=== PATIENT | female | born 1960 | race Caucasian/White ===

== ENCOUNTER 2019-10-13 20:34 | Emergency (ER) | payer OTHER ==
[~2019-10-13] VITALS: Ht 172.7 cm; Wt 104.3 kg
[~2019-10-13 20:34] MED LIST: CELEBREX 200 M200 M1 PO; CLONIDINE0.1 PO; CRESTOR20 MG PO; CYCLOBENZAPRINE10 MG PO; GRALISE600 MG PO; HYDROCODON-ACE1 EAC8 PO; LEXAPRO20 MG PO; LIORESAL 10 MG10 MG PO; LIPITOR 20 MG T20 M1 PO; METHADONE HCL 110 M1 PO; METHADONE HCL5 MG PO; MOBIC15 MG PO; RESTORIL15 MG PO; SERTRALINE HCL100 MG PO; TRILEPTAL300 MG PO; TYLENOL EXTRA500 MG PO; ZOCOR40 MG PO; ZOLOFT25 MG PO
[2019-10-13] MEDS ORDERED: ROBAXIN 750 MG750 MG PO (20:45)
[2019-10-13] MEDS ORDERED: PAXIL40 MG PO (20:46)
[2019-10-13] MEDS ORDERED: FLEXERIL PO (21:58)
[2019-10-13] MEDS ORDERED: HYDROCODON-ACE1 EAC8 PO (21:58)
[2019-10-13 22:16] VITALS: BP 125/70
== END 2019-10-13 22:16 | disposition home or self-care (01) ==
LOC: M.ERS 20:34
DX: M54.16 Radiculopathy, lumbar region (principal)

== ENCOUNTER 2021-01-22 11:16 | Inpatient (IN) | payer OTHER ==
[~2021-01-22] VITALS: Ht 172.7 cm; Wt 102.1 kg
--- NOTE | ~2021-01-22 | CON ---
[address] [address] CONSULTATION Name: AUGUSTINE LOWE Room: [place] [address] ADM IN M.R.#: [id number] Admission: 01/22/21 Attend Phys: Lucia Hope Discharge: Date of : 56 Report #: [id number] THIS REPORT FOR: cc: Nilton Rocha MD, Tuongvan T. MD Khosla, Parveen K. MD ~ DATE OF CONSULTATION: 01/22/2021 HISTORY OF PRESENT ILLNESS: This is a 61-year-old female patient who was seen by me for what she described as left-sided numbness and weakness. It is predominantly in the patient's left upper extremity. She said the left side of the face and left lower extremity is not involved. She had prior surgery in the neck. In fact, she had a prior surgery in the cervical and what she described as a lumbar spine. She had similar symptoms at that time. I am not sure how much relief she got after she got the surgery. REVIEW OF SYSTEMS: Pretty extensive in this patient. She has a history of what looks like a cervical radiculopathy as well as lumbar radiculopathy. She was admitted with a code stroke. She does have a history of anxiety and she takes duloxetine for that. She is a smoker. She denies any prior history of stroke. Symptoms are going on for a few days. She describes 1 episode, which is concerning because she said she had difficulty with speech and it lasted for a few minutes. She estimates about 10-15 minutes. She is left-handed and now she is having symptoms on the left side. Rest of the 14-point review of systems was carried out and was unremarkable. She is not complaining of any eye, ENT, cardiac, respiratory, GI, , musculoskeletal, constitutional, dermatological, hematological, psychiatric, throat, allergic symptom associated with present symptomatology except as summarized above. She does explain of some jerking of the left arm when she is sleeping. PAST MEDICAL HISTORY: Negative for any stroke. FAMILY HISTORY: Positive for hypertension. SOCIAL HISTORY: She smokes. PHYSICAL EXAMINATION: NEUROLOGIC: Indicates she is alert, responsive, somewhat anxious. Her speech, concentration, fund of knowledge and memory is at her baseline. Cranial nerve examination 2-12 looks mostly unremarkable. Her pulses are difficult to feel. She has no edema. She has reasonably built individual. She has no thyroid mass. There is no carotid bruit. There is no meningeal sign. Her hearing and vision looks adequate. VITAL SIGNS: Blood pressure is 141/55, respirations 23, pulse is 96 and she is afebrile and actually hypothermic at [address] [place] [address] CONSULTATION Name: AUGUSTINE LOWE Room: [place] [address] ADM IN [facility]#: [id number] Admission: 01/22/21 Attend Phys: Lucia Hope Discharge: Date of : 56 Report #: [id number] LABORATORY DATA: White count is 8.5 and GFR is 72. She had a CT scan of the head done on admission, which showed no acute changes. IMPRESSION: Pretty unusual symptom in this patient. I think her episode of speech difficulty is concerning and she is scheduled for an MRI of the brain already and we will see what it shows. We also need to look at the spine, which is more likely to be the etiology of the patient's symptoms. She has anxiety, which may be contributing to her symptoms or maybe even causing her symptoms. She has a pretty significantly increased LDL of 228 with HDL of 41. That along with smoking will be a very high risk for vascular risk factors and that need to be extensively treated. We will see what these testing show and go from there. Thank you very much for this referral. By: 41 10Daron Wheeler MD /nt
[~2021-01-22 11:16] MED LIST changes: +FLEXERIL PO; +PAXIL40 MG PO; +ROBAXIN 750 MG750 MG PO
[2021-01-22 11:32] VITALS: BP 124/69
[2021-01-22] MEDS ORDERED: CYMBALTA20 MG PO (11:36)
[2021-01-22] MEDS ORDERED: ADVAIR 100-501 EACH INH (11:37)
[2021-01-22] MEDS ORDERED: CLONIDINE HCL0.3 M3 PO (11:37)
[2021-01-22 13:55] LABS: ABSOLUTE BASOPHILS 0.1 thou/uL (0.0-0.2); ABSOLUTE EOSINOPHILS 0.3 thou/uL (0.0-0.7); ABSOLUTE LYMPHOCYTES 2.9 thou/uL (0.8-5.3); ABSOLUTE MONOCYTES 0.5 thou/uL (0.0-1.2); ABSOLUTE NEUTROPHILS 4.8 thou/uL (1.6-8.1); BASOPHILS 1.1 %; HEMATOCRIT 43.2 % (37.0-47.0); LYMPHOCYTES 34.1 %; MCH 31.6 pg (26.0-34.0); MCHC 34.8 g/dL (28.0-37.0); MCV 90.7 fL (80.0-100.0); MONOCYTES 5.8 %; NUCLEATED RBCS 0 /100WBC; PLATELET COUNT* 180 thou/uL (150-400); RBC 4.76 mil/uL (4.20-5.00); RDW-CV 13.3 % (10.5-14.5); WBC 8.5 thou/uL (4.0-11.0)
[2021-01-22 14:04] LABS: CALCIUM 8.7 mg/dL (8.5-10.1); CREATININE 0.8 mg/dL (0.6-1.3); POTASSIUM 3.9 mmol/L (3.5-5.1)
[2021-01-22 14:09] LABS: ALBUMIN 3.8 g/dL (3.4-5.0); TOTAL BILIRUBIN 0.5 mg/dL (<0.1-1.0)
--- NOTE | 2021-01-22 14:26 | EKG ---
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
[2021-01-22 17:17] LABS: CHOLESTEROL 298 mg/dL (<200); HDL CHOLESTEROL 41 mg/dL (>40); LDL CHOLESTEROL 228 mg/dL (<100); TC:HDL 7.3 Ratio (Not establshd); TRIGLYCERIDE 147 mg/dL (<150); VLDL 29 mg/dL (<40)
[2021-01-22 17:18] LABS: SERUM ASSESSMENT Clear
[2021-01-22 21:17] VITALS: BP 138/50
[2021-01-22 21:37] VITALS: BP 129/51
[2021-01-22] MEDS ORDERED: PRILOSEC OTC20 MG PO (23:51)
[2021-01-23 01:43] VITALS: BP 103/42
[2021-01-23 05:51] VITALS: BP 128/72
[2021-01-23 06:07] LABS: GLYCOHEMOGLOBIN (HGB A1C) 5.7 % (4.8-5.6)
--- NOTE | 2021-01-23 11:00 | EKG ---
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 : 1960 Requested By: Kishan Ortega Order Number: [id number] MD: Russ Moon Measurements Intervals [place] Rate: 69 P: 42 OR: 167 QRS: 1 QRSD: 85 T: 62 QT: 390 QTc: 418 Interpretive Statements Sinus rhythm Low voltage, precordial leads Baseline wander in lead(s) I,III,aVL,aVF Compared to ECG 01/22/2021 13:18:46 Low QRS voltage now present Electronically Signed On 01-23-2021 11:00:10 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
[2021-01-23 12:00] VITALS: BP 112/54
[2021-01-23 16:00] VITALS: BP 139/55
--- NOTE | 2021-01-23 17:41 | 2DMMODE ---
[place] [address] 2 D/M-MODE ECHOCARDIOGRAM Name: AUGUSTINE LOWE Room: [place] [address] ADM IN Jim#: [id number] Admission: 01/22/21 Attend Phys: Valerie Walsh Discharge: Date of : 56 Date of Service: 01/23/21 1741 Report #: [id number] THIS REPORT FOR: cc: Nilton Rocha MD, Tuongvan T. MD Liston, Michael J. MD [facility] ~ APPROVED REPORT Study performed: 01/23/2021 15:09:36 EXAM: Comprehensive 2D, Doppler, and color-flow Echocardiogram Patient Location: In-Patient Room #: [facility] Status: routine BSA: 2.15 HR: 51 bpm BP: 142/46 mmHg Rhythm: NSR Other Information Study Quality: Good Indications CVA/TIA Echo Enhancing Agent Indication: Rule out Shunt Agent(s) / Amount(s) Used: Agitated Saline 10 cc 2D Dimensions IVSd: 10.06 (7-11mm) LVOT Diam: 19.49 (18-24mm) LVDd: 44.27 mm PWd: 9.67 (7-11mm) Ascending Ao: 29.69 (22-36mm) LVDs: 29.25 (25-40mm) Aortic Root: 26.24 mm Volumes Left Atrial Volume (Systole) LA ESV Index: 22.50 mL/m2 Aortic Valve AoV Peak Joey.: 1.50 m/s AO Peak Gr.: 8.97 mmHg LVOT Max P.63 mmHg AO Mean Gr.: 5.08 mmHg LVOT Mean P.94 [place] [address] 2 D/M-MODE ECHOCARDIOGRAM Name: AUGUSTINE LOWE Room: [address] IN ..#: [id number] Admission: 01/22/21 Attend Phys: Valerie Walsh Discharge: Date of : 56 Date of Service: 01/23/21 1741 Report #: [id number] LVOT Max V: 1.38 m/s AO V2 VTI: 31.31 cm LVOT Mean V: 0.92 m/s TALYA (VTI): 3.15 cm2 LVOT V1 VTI: 33.04 cm Mitral Valve E/A Ratio: 1.19 MV Decel. Time: 198.91 ms MV E Max Joey.: 0.99 m/s MV PHT: 57.68 ms MVA (PHT): 3.81 cm2 TDI E/Lateral E': 12.38 E/Medial E': 9.90 Medial E' Joey.: 0.10 m/s Lateral E' Joey.: 0.08 m/s Pulmonary Valve PV Peak Joey.: 1.07 m/s PV Peak Gr.: 4.60 mmHg Tricuspid Valve RAP Estimate: 5.00 mmHg TR Peak Gr.: 20.90 mmHg RVSP: 25.00 mmHg PA Pressure: 25.00 mmHg Left Ventricle The left ventricle is normal size. There is normal LV segmental wall motion. There is normal left ventricular wall thickness. Left ventricular systolic function is normal. LVEF is 60-65%. The left ventricular diastolic function is normal. Right Ventricle The right ventricle is normal size. The right ventricular systolic function is normal. Atria The left atrium size is normal. The interatrial septum is intact with no evidence for an atrial septal defect. The right atrium size is normal. Aortic Valve The aortic valve is normal in structure. No aortic regurgitation is present. There is no aortic valvular stenosis. Mitral Valve The mitral valve is normal in structure. There is no mitral valve regurgitation noted. No evidence of mitral [place] [address] 2 D/M-MODE ECHOCARDIOGRAM Name: CHRISSYAUGUSTINE PIZARRO Room: [place] [address] ADM IN M.R.#: [id number] Admission: 01/22/21 Attend Phys: Valerie Walsh Discharge: Date of : 56 Date of Service: 01/23/21 1741 Report #: [id number] Tricuspid Valve The tricuspid valve is normal in structure. Trace tricuspid regurgitation. No pulmonary hypertension. Pulmonic Valve The pulmonary valve is normal in structure. There is no pulmonic valvular regurgitation. Great Vessels The aortic root is normal in size. IVC is normal in size and collapses >50% with inspiration. Pericardium There is no pericardial effusion. <Conclusion> The left ventricle is normal size. There is normal left ventricular wall thickness. Left ventricular systolic function is normal. LVEF is 60-65%. The left ventricular diastolic function is normal. Trace tricuspid regurgitation. No pulmonary hypertension. IVC is normal in size and collapses >50% with inspiration. The interatrial septum is intact with no evidence for an atrial septal defect. <ELECTRONICALLY SIGNED> By: Simón Trevino MD, FACC 01/23/211740 40 40 Simón Trevino MD, FACC /INF
[2021-01-23 20:00] VITALS: BP 108/53
[2021-01-24 01:49] VITALS: BP 111/54
[2021-01-24 06:33] VITALS: BP 108/42
[2021-01-24] MEDS ORDERED: LIPITOR40 MG PO (10:45)
[2021-01-24] MEDS ORDERED: BAYER CHEWABLE81 MG PO (10:45)
[2021-01-24] MEDS ORDERED: PLAVIX 75 MG TA75 M1 PO (10:48)
[2021-01-24 12:00] VITALS: BP 98/59
[2021-01-24 12:31] VITALS: BP 127/59
[2021-01-27 18:06] LABS: ANA INTERPRETATION Negative (())
== END 2021-01-24 13:40 | disposition home or self-care (01) | DRG 65 ==
LOC: M.ERS 11:16 → M.2W 14:54 → M.TBA-ER 14:54 → M.2W 21:20
PROVIDERS: Physician Assistant; Psychiatry & Neurology Neuromuscular Medicine; ADMIT Internal Medicine; ATTEND Internal Medicine
DX: I63.511 Cerebral infarction due to unspecified occlusion or stenosis of right middle cerebral artery (principal); G81.94 Hemiplegia, unspecified affecting left nondominant side; M48.02 Spinal stenosis, cervical region; M54.12 Radiculopathy, cervical region; F41.9 Anxiety disorder, unspecified; F17.210 Nicotine dependence, cigarettes, uncomplicated; F32.9 Major depressive disorder, single episode, unspecified; I10 Essential (primary) hypertension; E78.5 Hyperlipidemia, unspecified; J44.9 Chronic obstructive pulmonary disease, unspecified; Z79.1 Long term (current) use of non-steroidal anti-inflammatories (NSAID); Z82.49 Family history of ischemic heart disease and other diseases of the circulatory system